=== PATIENT | female | born 1970 ===

== ENCOUNTER 2023-07-20 06:26 | Day surgery (SDC) | payer OTHER ==
[2023-07-14 10:39] LABS: HEMATOCRIT 41.4 % (36.0-45.00); HEMOGLOBIN 14.4 g/dL (12.0-15.00); MEAN CELL VOLUME 90.3 fL (80.00-100.00); MEAN CORPUSCULAR HEMOGLOBIN 31.4 pg (27.00-32.0); MEAN CORPUSCULAR HGB CONC 34.8 g/dl (32.0-36.0); PLATELET COUNT 198 K/uL (150-450); RED BLOOD COUNT 4.59 M/uL (4.00-6.00); RED CELL DISTRIBUTION WIDTH 13.1 % (11.5-14.5)
[2023-07-14 10:40] LABS: PH,URINE 5.5 (5.0-8.0); URINE APPEARANCE Clear; URINE BILIRRUBIN Negative (NEGATIVE); URINE BLOOD Negative; URINE COLOR Yellow; URINE GLUCOSE Negative (NEGATIVE); URINE LEUKOCYTE Small; URINE NITRATE Negative; URINE PROTEIN Negative (NEGATIVE); URINE UROBILINOGEN 0.2 E.U./dl
[2023-07-14 10:42] LABS: URINE BACTERIA 229.2 uL (0.0-1933); URINE EPITHELIAL CELLS 24.6 uL (0.0-38.8); URINE RBC 5.4 uL (0.0-20.8); URINE WBC 16.3 uL (0.0-23.2)
[2023-07-14 11:08] LABS: INR 0.94; PARTIAL THROMBOPLASTIN TIME 25.4 SECONDS (22.0-34.0); PROTHROMBIN TIME 9.9 SECONDS (9.0-11.5)
[2023-07-14 11:12] LABS: ALBUMIN 3.7 gm/dL (3.4-5.0); BILIRUBIN TOTAL 0.44 mg/dL (0.3-1.2); CALCIUM 9.1 mg/dL (8.5-10.1); CREATININE SERUM 0.61 mg/dL (0.55-1.02); GFR 102.99; GLOBULINA 3.8 G/DL (2.4-3.5); TOTAL PROTEIN 7.5 gm/dL (6.4-8.2)
[2023-07-14 11:19] LABS: POTASSIUM 4.64 mEq/L (3.5-5.1)
[~2023-07-20 06:26] MED LIST: ACETAMINOOPHEN-1 TAB PO; COLACE100 MG PO; FLAGYL500MG PO; IRON1TAB4 PO; METOPROLOL SUCC50 MG PO; NAPR500T14 PO; NORVASC5 MG PO; SYNTHROID50 MCG PO
== END 2023-07-20 13:05 | disposition home or self-care (01) ==
LOC: CIR.AMB 06:26
PROVIDERS: ATTEND Orthopaedic Surgery Hand Surgery
DX: M67.432 Ganglion, left wrist (principal); D21.12 Benign neoplasm of connective and other soft tissue of left upper limb, including shoulder; R22.32 Localized swelling, mass and lump, left upper limb; E11.9 Type 2 diabetes mellitus without complications; E78.00 Pure hypercholesterolemia, unspecified; I10 Essential (primary) hypertension; Z20.822 Contact with and (suspected) exposure to COVID-19